=== PATIENT | female | born 1930 | race Caucasian/White ===

== ENCOUNTER 2020-01-21 11:25 | Emergency (ER) | payer OTHER ==
[2020-01-21 11:31] VITALS: BMI 23.0
[2020-01-21] MEDS ORDERED: ACETAMINOPHEN 1000 MG/100 ML VIAL (NON FORMULARY) IVPB ONE (11:39)
[2020-01-21] MEDS ORDERED: SODIUM CHLORIDE 500 ML IV STA (12:00)
[2020-01-21] MEDS ORDERED: CEFTRIAXONE 1 GM in DEXTROSE 5%-WATER - 100 ML IVPB ONE (12:02)
[2020-01-21] MEDS ORDERED: VANCOMYCIN HCL 1,500 MG in DEXTROSE 5%-WATER - 500 ML IVPB ONE (12:03)
--- NOTE | 2020-01-21 12:07 | PDOC ---
History of Present Illness - General Chief Complaint: Weakness Stated Complaint: weakness Time Seen by Provider: 01/21/20 11:37 History Source: Patient, Spouse, Old Records Exam Limitations: No Limitations - History of Present Illness Initial Comments: 01/21/20 12:38 89y F with PMH of CAD, Afib on warfarin, NIDDM, HTN, Dementia, CVA presenting to the ER for pain to the L hand and decreased movement. Pt is with her and both are poor historians. Pain and swelling has been going on for a few days. Pt was recently treated for a uti by pmd for 1 week and finished abx yesterday. Endorses weakness, fever and pain in the L hand. Denies chest pain, sob, cough, congestion, headache, abdominal pain, n/v/d, injury to the hand. PMD: Anderson PMH: see hpi Meds: see med rec Allergies: PCN Past History - Medical History Allergies/Adverse Reactions: Allergies Allergy/AdvReac Type Severity Reaction Status Date / Time Penicillins Allergy Verified 03/19/13 14:47 Home Medications: Ambulatory Orders Atorvastatin Ca [Lipitor] 10 mg PO DAILY 03/19/13 Diltiazem HCl [Cardizem] 180 mg PO DAILY 03/19/13 Glyburide 2.5 mg PO TID 03/19/13 Levothyroxine [Synthroid -] 88 mcg PO DAILY 03/19/13 Metoprolol Tartrate [Lopressor -] 125 mg PO DAILY 03/19/13 Valsartan [Diovan] 160 mg PO DAILY 03/19/13 Warfarin Sodium 3.5 mg PO DAILY 03/19/13 Cardiac Disorders: Yes COPD: No Diabetes: Yes HTN: Yes Hypercholesterolemia: Yes Thyroid Disease: Yes - Reproductive History Is Patient Now?: No - Psycho-Social/Smoking History Smoking Status: No Smoking History: Never smoked Number of Cigarettes Smoked Daily: 0 - Substance Abuse Hx (Audit-C & DAST Scrn) How often the patient has a drink containing alcohol: Never Score: In Men: 4 or > Positive; In Women: 3 or > Positive: 0 Screen Result (Pos requires Nsg. Audit-10AR): Negative In the last yr the pt used illegal drug/Rx for NonMed reason: No Score: Yes response is considered Positive: 0 Screen Result (Positive result requires Nsg. DAST-10): Negative Review of Systems - Review of Systems Constitutional: Yes: Chills, Fever, Loss of Appetite, Weakness HEENTM: No: Symptoms Reported Respiratory: No: Symptoms reported Cardiac (ROS): No: Symptoms Reported ABD/GI: No: Symptoms Reported Musculoskeletal: Yes: See HPI Integumentary: Yes: See HPI Neurological: No: Symptoms reported *Physical Exam - Vital Signs Last Vital Signs Temp Pulse Resp BP Pulse Ox 100.5 F H 116 H 16 129/77 99 01/21/20 11:39 01/21/20 11:29 01/21/20 11:29 01/21/20 11:29 01/21/20 11:29 - Physical Exam General Appearance: Yes: Appropriately Dressed, Mild Distress, Thin HEENT: positive: EOMI, DIPTI, Other (exudates from both eyes. normal conjunctiva) Neck: positive: Trachea midline, Supple. negative: Lymphadenopathy (R), Lymphadenopathy (L) Respiratory/Chest: positive: Lungs Clear, Normal Breath Sounds. negative: Crackles, Rales, Rhonchi, Stridor, Wheezing Cardiovascular: positive: Regular Rhythm, S1, S2, Tachycardia. negative: Edema, JVD, Murmur Vascular Pulses: Dorsalis-Pedis (R): 1+, Doralis-Pedis (L): 1+ Comments:: 01/21/20 13:50 radial pulses 2+ Gastrointestinal/Abdominal: positive: Normal Bowel Sounds, Soft. negative: Tender Musculoskeletal: negative: CVA Tenderness Extremity: positive: Other (swelling of L thumb with pain to palpation active/passive ROM. erythema and warmth around entire digit with extension to proximal wrist. ) Integumentary: positive: Warm, Erythema, Swelling Neurologic: positive: middleware engineer II-XII NML intact, Fully Oriented, Alert, Normal Mood/Affect, Normal Response, Motor Strength /5 ED Treatment Course - LABORATORY CBC & Chemistry Diagram: 01/21/20 12:32 01/21/20 12:32 - RADIOLOGY Radiology Studies Ordered: Category Date Time Status CHEST X-RAY PORTABLE* [RAD] Stat Radiology 01/21/20 11:38 Taken Medical Decision Making - Medical Decision Making 01/21/20 13:43 89y F with pmh of afib, cad, dm, dementia, cva presenting to the er for fever/weakness and pain in the l hand. vitals; tachycardic, febrile pe shows pain and swelling to L thumb with swelling around entire digit. pain with active and passive rom, swelling and erythema extending to proximal wrist. ddx includes flexor tenosynovitis, cellullitis, necfac, uti, pna, -sepsis w/u -tylenol for fever, vanc/rocephin -hand consult. hand not available here, will need transfer. for further evaluation of hand and possible drainage of wound. case discussed with patient, and daughter Bere including diagnosis and reasons for transfer. agree to transfer Dr. Bethany Traore (plastics) at [facility] will accept transfer to adult ER. 01/21/20 13:54 Discharge - Discharge Information Problems reviewed: Yes Clinical Impression/Diagnosis: Cellulitis and abscess of hand Condition: Guarded Disposition: TRANSFER ACUTE CARE/OTHER HOSP - Admission No - Follow up/Referral Referrals: Brett Barron MD [Primary Care Provider] - - Patient Discharge Instructions - Post Discharge Activity - Transfer to Acute Care Facility Receiving Facility Name: [facility]
[2020-01-21] MEDS ORDERED: ACETAMINOPHEN INJECTION 100 ML IVPB ONE (12:11)
[2020-01-21] MEDS ORDERED: VANCOMYCIN 1 GRAM (PRE-DOCKED) 1,000 MG/250 ML BAG IVPB ONE (12:11)
[2020-01-21] MEDS ORDERED: VANCOMYCIN 500 MG VIAL (RESTRICTED TO ID ONLY) ONE (12:11)
[2020-01-21] MEDS ORDERED: CEFTRIAXONE 1 GM/50 ML BAG ONE (12:12)
[2020-01-21 13:04] LABS: BASO % 0.5 % (0-2.0); EOS % 0.3 % (0-4.5); HEMATOCRIT 39.6 % (32.4-45.2); HEMOGLOBIN 13.2 GM/dL (10.7-15.3); LYMPH % 11.7 % (8-40); MCH 31.3 pg (25.7-33.7); MCHC 33.4 g/dl (32.0-36.0); MEAN CELL VOLUME 93.7 fl (80-96); MEAN PLT VOLUME 11.3 fl (7.5-11.1); NEUT % 81.5 % (42.8-82.8); PLATELET COUNT 145 K/MM3 (134-434); RBC 4.23 M/mm3 (3.60-5.2); RDW 14.7 % (11.6-15.6); WHITE BLOOD COUNT 8.7 K/mm3 (4.0-10.0)
--- NOTE | 2020-01-21 13:06 | PDOC ---
Documentation entered by Lorena Rivas SCRIBE, acting as scribe for Keira Wu MD. Keira Wu MD: This documentation has been prepared by the Rob holbrook Xhesika, SCRIBE, under my direction and personally reviewed by me in its entirety. I confirm that the documentation accurately reflects all work, treatment, procedures, and medical decision making performed by me. Attending Attestation - Resident Resident Name: Poppy Myers - ED Attending Attestation I have performed the following: I have examined & evaluated the patient, The case was reviewed & discussed with the resident, I agree w/resident's findings & plan, Exceptions are as noted - HPI HPI: 01/21/20 11:39 The patient is an 89 y/o female with a past medical history significant for HTN, CAD, AFib, Thyroid Disease, DM, and prior CVA who presents to the ED with generalized weakness and L arm pain. Per he noticed that the pt was unable to move her L arm/hand and thought she was having a stroke, prompting her arrival to the ED. Pt states she was recently treated with abx for a UTI (finished course of abx yesterday). The patient denies CP, SOB, nausea, vomiting, diarrhea, fever, chills, headache, dizziness, abdominal pain, or back pain. Allergies: Penicillins PCP: Brett Barron - Physicial Exam PE: 01/21/20 11:45 GENERAL: elderly, nontoxic-appearing, no distress, hard of hearing, answers questions appropriately, accompanied by supportive at bedside who assists in history, family states Pt is A/O per baseline and mentating at baseline HEENT: PERRLA, EOMI, moist mucous membranes, b/l nonpurulent eye discharge NECK/BACK: no midline ttp, no spinal stepoff or deformity, no hematoma, full ROM, neck supple CARDIOVASCULAR: regular rate/rhythm, no MGR, strong peripheral pulses, capillary refill <2 seconds, extremities wwp, no edema LUNGS/RESPIRATORY: no respiratory distress, CTAB GI/ABDOMEN: symmetric [id number], normoactive BS, soft, no ttp, no midline pulsatile masses : no CVA tenderness MSK/EXTREMITIES: left thumb and thenar eminence with tenderness, swelling, erythema, and warmth extending from palmar to dorsal surface of hand, and on dorsal surface of left hand the erythema and warmth extend diffusely and to the dorsal distal 1/3 of the left forearm, no palpable subq emphysema, passive flexion and extension of the left thumb reproduces patient's pain, no acute- appearing muscle atrophy, no acute deformity DERM/SKIN: see MSK/extremity section but other than the LUE findings the skin is warm and dry, no pallor, no jaundice, no pathologic-appearing bruising, no skin breakdown, no cuts, no lesions NEUROLOGICAL: GCS 15, CN II-XII grossly intact, 5/5 strength proximally and distally, no facial droop - Medical Decision Making 01/21/20 12:47 [id number] presents with left thumb pain, swelling, redness, and warmth extending to distal FA, now with fever. Initial Vital Signs Temp Pulse Resp BP Pulse Ox 100.1 F H 116 H 16 129/77 99 01/21/20 11:29 01/21/20 11:29 01/21/20 11:29 01/21/20 11:29 01/21/20 11:29 DDX IBNLT: most likely cellulitis, and there is additional concern for tenosynovitis and other more serious deep space hand infections, as well as necrotizing soft tissue infection, necrotizing fasciitis, etc. Concern is that the patient has systemic findings now with the fever. She will need hand consult. RAD/CHEST X-RAY PORTABLE* Chest: Sepsis A single view of the chest is been submitted. Since the prior exam of 03/19/2013 is a slightly weaker inspiration with rotation to the right, prominent mediastinum and clear lungs. The costophrenic angles are sharp. The soft tissues are intact. Acute process is not seen. There is skin fold artifact. There are some degenerative changes. Impres jin: No acute chest pathology. Rotation right. No change of an adverse nature since 03/19/2013. Provider Orders Category Date Time Status VENOUS BLOOD GAS Stat ABG 01/21/20 12:32 Completed ELECTROCARDIOGRAM [CARD] Stat Cardiology 01/21/20 11:38 Ordered Cardiac Monitoring Continuous Care 01/21/20 11:38 Active EKG needed NOW Care 01/21/20 11:38 Completed IV - Insert 2 lines NOW Care 01/21/20 11:38 Active Notify Physician As directed Care 01/21/20 11:38 Active Notify Physician As directed Care 01/21/20 11:38 Active Physician Instructions As directed Care 01/21/20 11:38 Active Rectal Temp NOW Care 01/21/20 11:38 Active Straight Catheter, Insert ONCE Care 01/21/20 11:39 Active Vital Signs [id number] Care 01/21/20 11:38 Active CBC WITH DIFFERENTIAL Stat Lab 01/21/20 12:32 Completed CK MB Stat Lab 01/21/20 12:32 Completed COMP METABOLIC PANEL Stat Lab 01/21/20 12:32 Completed COVID-19 Stat Lab 01/21/20 12:50 Received LACTIC ACID Stat Lab 01/21/20 12:32 Received LACTIC ACID Stat Lab 01/21/20 15:38 Uncollected PT & APTT Stat Lab 01/21/20 12:32 Completed TROPONIN I ([facility]) Stat Lab 01/21/20 11:38 Ordered UA ([facility]) ONLY Stat Lab 01/21/20 12:50 Completed Acetaminophen Injection [Ofirmev Injection -] Medication 01/21/20 11:39 Discontinued 1,000 mg IVPB ONCE ONE Acetaminophen Injection [Ofirmev Injection -] 100 ml Medication 01/21/20 12:11 Discontinued IVPB UD Ceftriaxone [Rocephin -] 1 gm Medication 01/21/20 12:02 Discontinued Dextrose 5%-Water - [D5w -] 100 ml IVPB ONCE Ceftriaxone [Rocephin 1Gm Ivpb (Pre-Docked)] Medication 01/21/20 12:12 Discontinued 1 gm in 50 ml .ROUTE UD Sodium Chloride [Normal Saline -] 500 ml Medication 01/21/20 12:00 Discontinu ed IV ASDIR Vancomycin Medication 01/21/20 12:11 Discontinued 500 mg .ROUTE .STK-MED ONE Vancomycin 1 Gram (Pre-Docked) [Vancomycin (Pre-Docked) Medication 01/21/20 12:11 Discontinued ] 1,000 mg in 250 ml IVPB UD Vancomycin HCl 1,500 mg Medication 01/21/20 12:03 Active Dextrose 5%-Water - [D5w -] 500 ml IVPB ONCE BLOOD CULTURE Stat Micro 01/21/20 12:32 Received URINE CULTURE Stat Micro 01/21/20 12:50 Received Saline Lock, Insert As directed Phy Order 01/21/20 11:38 Ordered CHEST X-RAY PORTABLE* [RAD] Stat Radiology 01/21/20 11:38 Completed Oxygen Therapy Nasal Cannula 2 lpm Slip Sheeter 01/21/20 11:38 Ordered Medications Generic Name Dose Route Start Last Admin Trade Name Leta PRN Reason Stop Dose Admin Vancomycin HCl 1,500 mg/ 500 mls @ 250 mls/hr 01/21/20 12:03 01/21/20 13:00 Dextrose IVPB 01/21/20 14:02 250 mls/hr ONCE ONE Administration Discontinued Medications Generic Name Dose Route Start Last Admin Trade Name Leta PRN Reason Stop Dose Admin Acetaminophen 1,000 mg 01/21/20 11:39 01/21/20 12:00 Ofirmev Injection - IVPB 01/21/20 11:40 1,000 mg ONCE ONE Administration Sodium Chloride 500 mls @ 1,000 mls/hr 01/21/20 12:00 01/21/20 13:06 Normal Saline - IV 01/21/20 12:29 1,000 mls/hr ASDIR STA Administration Ceftriaxone Sodium 1 gm/ 100 mls @ 200 mls/hr 01/21/20 12:02 01/21/20 12:35 Dextrose IVPB 01/21/20 12:31 200 mls/hr ONCE ONE Administration Acetaminophen Confirm 01/21/20 12:11 Ofirmev Injection - Administered 01/21/20 12:12 Dose 100 mls @ ud IVPB .STK-MED ONE Vancomycin HCl Confirm 01/21/20 12:11 Vancomycin (Pre-Docked) Administered 01/21/20 12:12 Dose 1,000 mg in 250 mls @ ud IVPB .STK-MED ONE Ceftriaxone Sodium Confirm 01/21/20 12:12 Rocephin 1gm Ivpb (Pre-Docked) Administered 01/21/20 12:13 Dose 1 gm in 50 mls @ ud .ROUTE .STK-MED ONE Vancomycin HCl Confirm 01/21/20 12:11 Vancomycin Administered 01/21/20 12:12 Dose 500 mg .ROUTE .STK-MED ONE Lab Results WBC 8.7 K/mm3 (4.0-10.0) 01/21/20 12:32 RBC 4.23 M/mm3 (3.60-5.2) 01/21/20 12:32 Hgb 13.2 GM/dL (10.7-15.3) 01/21/20 12:32 Hct 39.6 % (32.4-45.2) 01/21/20 12:32 MCV 93.7 fl (80-96) 01/21/20 12:32 MCH 31.3 pg (25.7-33.7) 01/21/20 12:32 MCHC 33.4 g/dl (32.0-36.0) 01/21/20 12:32 RDW 14.7 % (11.6-15.6) 01/21/20 12:32 Plt Count 145 K/MM3 (134-434) 01/21/20 12:32 MPV 11.3 fl (7.5-11.1) H D 01/21/20 12:32 Absolute Neuts (auto) 7.1 K/mm3 (1.5-8.0) 01/21/20 12:32 Neutrophils % 81.5 % (42.8-82.8) D 01/21/20 12:32 Lymphocytes % 11.7 % (8-40) D 01/21/20 12:32 Monocytes % 6.0 % (3.8-10.2) 01/21/20 12:32 Eosinophils % 0.3 % (0-4.5) 01/21/20 12:32 Basophils % 0.5 % (0-2.0) 01/21/20 12:32 Nucleated RBC % 0 % (0-0) 01/21/20 12:32 PT with INR 24.30 SEC (9.7-13.0) H 01/21/20 12:32 INR 2.04 (0.83-1.09) H 01/21/20 12:32 PTT (Actin FS) 30.8 SECONDS (25.2-36.5) 01/21/20 12:32 VBG pH 7.399 (7.310-7.410) 01/21/20 12:32 POC VBG pCO2 45.3 mmHg (38-52) 01/21/20 12:32 POC VBG pO2 23.4 mmHg (28-48) L 01/21/20 12:32 VBG HCO3 27.4 mmol/L (23-29) 01/21/20 12:32 VBG O2 Sat (Kvng) 40.7 % (70-80) L 01/21/20 12:32 VBG Base Excess 2.1 mmol/L (-2-2) H 01/21/20 12:32 Sodium 139 mmol/L (136-145) 01/21/20 12:32 Potassium 5.0 mmol/L (3.5-5.1) 01/21/20 12:32 Chloride 106 mmol/L (98-107) 01/21/20 12:32 Carbon Dioxide 26 mmol/L (21-32) 01/21/20 12:32 Anion Gap 7 MMOL/L (8-16) L 01/21/20 12:32 BUN 13.7 mg/dL (7-18) 01/21/20 12:32 Creatinine 0.9 mg/dL (0.55-1.3) 01/21/20 12:32 Est GFR (CKD-EPI)AfAm 65.70 01/21/20 12:32 Est GFR (CKD-EPI)NonAf 56.69 01/21/20 12:32 Random Glucose 138 mg/dL (74-106) H 01/21/20 12:32 Calcium 8.7 mg/dL (8.5-10.1) 01/21/20 12:32 Total Bilirubin 1.0 mg/dL (0.2-1) 01/21/20 12:32 AST 39 U/L (15-37) H 01/21/20 12:32 ALT 13 U/L (13-61) 01/21/20 12:32 Alkaline Phosphatase 68 U/L (45-117) 01/21/20 12:32 CK-MB (CK-2) < 1.0 ng/mL (0.5-3.6) 01/21/20 12:32 Total Protein 6.3 g/dl (6.4-8.2) L 01/21/20 12:32 Albumin 2.7 g/dl (3.4-5.0) L 01/21/20 12:32 Urine Color Dk yellow 01/21/20 12:50 Urine Appearance Clear 01/21/20 12:50 Urine pH 5.0 (5.0-8.0) 01/21/20 12:50 Ur Specific [place] 1.021 (1.010-1.035) 01/21/20 12:50 Urine Protein Trace (NEGATIVE) 01/21/20 12:50 Urine Glucose (UA) Negative (NEGATIVE) 01/21/20 12:50 Urine Ketones Trace (NEGATIVE) H 01/21/20 12:50 Urine Blood Negative (NEGATIVE) 01/21/20 12:50 Urine Nitrite Negative (NEGATIVE) 01/21/20 12:50 Urine Bilirubin Negative (NEGATIVE) 01/21/20 12:50 Urine Urobilinogen 1.0 mg/dL (0.2-1.0) 01/21/20 12:50 Ur Leukocyte Esterase Negative (NEGATIVE) 01/21/20 12:50 01/21/20 12:58 Dr. Posada is out on vacation and there is no availability for hand consult at this time. Will xfr to [facility] per preference of the patient's . 01/21/20 13:[address] Barron's office and cell to notify him of lack of hand consult availability and plan to xfr. The Pt is unsafe for discharge at this time. They require further hospital observation, workup, and treatment. They need evaluation at a trauma center given the mechanism and w/u results. Transfer center called and connected with admitting provider. Pt to be transferred to: [facility]. Pt accepted in transfer to: hand trousseau consultant per resident note. Pt/family informed of plan for transfer and they agree with this plan. Transfer paperwork completed and signed by all indicated parties. EMS crew arrives and transfers Pt to ambulance without issue. 01/21/20 15:06 Heart Score/ECG Review #1 01/21/20 13:34 A-fib, rate 93, low voltages in chest leads, normal axis, artifact in V3, diffuse TWF otherwise no acute ST-T changes Discharge - Discharge Information Problems reviewed: Yes Clinical Impression/Diagnosis: Cellulitis and abscess of hand Condition: Guarded Disposition: TRANSFER ACUTE CARE/OTHER HOSP - Follow up/Referral Referrals: Brett Barron MD [Primary Care Provider] - - Patient Discharge Instructions - Post Discharge Activity
[2020-01-21 13:12] LABS: INR 2.04 (0.83-1.09); PROTHROMBIN TIME (PATIENT) 24.3 SEC (9.7-13.0)
[2020-01-21 13:15] LABS: ACTIVATED PTT 30.8 SECONDS (25.2-36.5)
[2020-01-21 13:18] LABS: VENOUS BASE EXCESS 2.1 mmol/L (-2-2); VENOUS O2 SATURATION 40.7 % (70-80); VENOUS PCO2 45.3 mmHg (38-52); VENOUS PH 7.399 (7.310-7.410)
[2020-01-21 13:19] LABS: URINE APPEARANCE CLEAR; URINE BILIRUBIN NEGATIVE (NEGATIVE); URINE COLOR DK YELLOW; URINE GLUCOSE (UA) NEGATIVE (NEGATIVE); URINE KETONE TRACE (NEGATIVE); URINE LEUK ESTERASE NEGATIVE (NEGATIVE); URINE NITRITE NEGATIVE (NEGATIVE); URINE PROTEIN TRACE (NEGATIVE)
[2020-01-21 13:30] LABS: ALBUMIN 2.7 g/dl (3.4-5.0); ALK PHOS 68 U/L (45-117); ANION GAP 7 MMOL/L (8-16); BLOOD UREA NITROGEN 13.7 mg/dL (7-18); CALCIUM 8.7 mg/dL (8.5-10.1); CHLORIDE 106 mmol/L (98-107); CO2 26 mmol/L (21-32); CREATININE 0.9 mg/dL (0.55-1.3); GLUCOSE,RANDOM 138 mg/dL (74-106); SGOT/AST 39 U/L (15-37); SGPT/ALT 13 U/L (13-61); SODIUM 139 mmol/L (136-145); TOT PROT 6.3 g/dl (6.4-8.2)
[2020-01-21 14:04] VITALS: TEMP 98.9
[2020-01-21 14:41] VITALS: BP 122/82; PULSE 86
--- NOTE | 2020-01-21 16:24 | EKG ---
Test Reason : Blood Pressure : / mmHG Vent. Rate : 093 BPM Atrial Rate : 075 BPM P-R Int : 000 ms QRS Dur : 072 ms QT Int : 350 ms P-R-T Axes : 000 -22 020 degrees QTc Int : 435 ms ATRIAL FIBRILLATION LOW VOLTAGE QRS NONSPECIFIC T WAVE ABNORMALITY ABNORMAL ECG WHEN COMPARED WITH ECG OF 19-MAR-2013 14:26, NO SIGNIFICANT CHANGE WAS FOUND Confirmed by MD MARCO, KYLIE ([id number]) on 01/21/2020 4:24:05 PM Referred By: Confirmed By:KYLIE LARA MD
== END 2020-01-21 14:30 | disposition short-term general hospital (02) ==
LOC: SUPCPDRO 11:25 → JER 11:25
DX: L03.114 Cellulitis of left upper limb (principal); L02.512 Cutaneous abscess of left hand
CPT/HCPCS: 36415; 71045-TC-FY; 80053; 81003; 82553; 82803; 83605; 84484; 85025; 85610; 85730; 87040; 87077; 87086; 93005; 93010; 99284-25; J0131; U0003